=== PATIENT | male | born 1995 | race Caucasian/White ===

== ENCOUNTER 2016-06-20 06:23 | Emergency (ER) | payer OTHER ==
[~2016-06-20] VITALS: Ht 182.9 cm; Wt 61.2 kg
[2016-06-20] MEDS ORDERED: HYDROcodone-ACET 5/325MG TAB PO ONE (07:30)
[2016-06-20 09:16] VITALS: BP 127/81
== END 2016-06-20 09:56 | disposition home or self-care (01) ==
LOC: ER 06:25
CPT/HCPCS: 76870; 94761